=== PATIENT | male | born 1970 | race Hispanic/Latino ===

== ENCOUNTER 2017-10-03 17:48 | Emergency (ER) | payer OTHER ==
[2017-10-03 18:02] VITALS: BP 150/91; PULSE 98; RESP 22; TEMP 98.1; O2SAT 98
--- NOTE | 2017-10-03 18:31 | ED PDOC ---
HPI: Wound Care - HPI Time Seen by Provider: 10/03/17 17:57 Chief Complaint (Nursing): Abnormal Skin Integrity Chief Complaint (Provider): right leg laceration History Per: Patient Exam Limitations: no limitations Onset/Duration Of Symptoms: Hrs (x 1) Current Symptoms Are (Timing): Still Present Location Of Injury: Right: Leg (laceration) Additional Complaint(s): 47 year old male presents to ED with laceration to the right leg sustained when mirror fell on top of his leg 1 hour prior to arrival. Patient is not sure of last tetanus shot. Patient is complaining of pain to affected area. No loss of sensation. PMD: none Past Medical History Reviewed: Historical Data, Nursing Documentation, Vital Signs Vital Signs: Last Vital Signs Temp 98.1 F 10/03/17 18:00 Pulse 98 H 10/03/17 18:00 Resp 22 10/03/17 18:00 BP 150/91 H 10/03/17 18:00 Pulse Ox 98 10/03/17 18:00 - Medical History PMH: Anxiety - Surgical History Surgical History: No Surg Hx - Family History Family History: States: No Known Family Hx - Living Arrangements Living Arrangements: With Friends/Others - Social History Current smoker - smoking cessation education provided: Yes (Some days) Alcohol: Social Drugs: Denies - Immunization History Hx Tetanus Toxoid Vaccination: No (not sure of last tetanus) - Allergies Allergies/Adverse Reactions: Allergies Allergy/AdvReac Type Severity Reaction Status Date / Time No Known Allergies Allergy Verified 09/24/14 05:24 Review of Systems ROS Statement: Except As Marked, All Systems Reviewed And Found Negative Musculoskeletal: Positive for: Other (laceration to right leg) Physical Exam - Reviewed Nursing Documentation Reviewed: Yes Vital Signs Reviewed: Yes - Physical Exam Appears: Positive for: Well, Non-toxic, No Acute Distress Skin: Negative for: Rash Eye Exam: Positive for: Normal appearance Extremity: Positive for: Other (7 cm linear vertical laceration to medial mid jameson of the right leg with no active bleeding, wound is superficial, full rom right knee and ankle, normal sensation surrounding wound, normal distal sensation) Neurologic/Psych: Positive for: Alert, Oriented. Negative for: Motor/Sensory Deficits - ECG O2 Sat by Pulse Oximetry: 98 (RA) Pulse Ox Interpretation: Normal Procedure: Wound Repair - Time Performed Time Performed: 19:15 - Time Out Time Out: Side verified, Site verified, Patient ID confirmed, Sterile procedures obs. - Procedure Procedure: Wound Repair: right leg laceration - Consent Obtained Consent obtained: Verbal - Performed by Performed by: Mid-level Provider - Indications Indication(s):: Laceration - Location Location:: Right, Leg (medial jameson) Shape:: Linear Dimensions Length cm: 7 Dimensions width cm: 3 mm - Anesthetic Technique Anesthetic Technique: Local Local/Regional Anesthetic:: Lidocaine 2% - Debris Debris:: None - Irrigated Irrigated with ml of normal saline: 30 - Complexity Complexity:: Simple (one layer) - Wound repair method Sutures:: Technique (4-0 nylon running suture) - Muscle repiar layer closed with Muscle repair layer closed with:: Wound well approximated, Abx ointment applied , Dressing applied, Tetanus ordered - Complications Complications: none - Patient tolerated procedure Patient Tolerated Procedure:: Well Medical Decision Making Medical Decision Making: Impression: 47 year old with right leg laceration Plan: - Laceration repair - Tetanus booster See procedure note. Patient was given wound care instructions. Scribe Attestation: Documented by Frantz Cedillo, acting as a scribe for Sheryl Ames PA-C Provider Scribe Attestation: All medical record entries made by the Scribe were at my direction and personally dictated by me. I have reviewed the chart and agree that the record accurately reflects my personal performance of the history, physical exam, medical decision making, and the department course for this patient. I have also personally directed, reviewed, and agree with the discharge instructions and disposition. Disposition - Clinical Impression Clinical Impression: Leg laceration, Requires a booster tetanus - Patient ED Disposition Is Patient to be Admitted: No Counseled Patient/Family Regarding: Diagnosis, Need For Followup - Disposition Referrals: [facility] [Outside] Disposition: Routine/Home Disposition Time: 19:11 Condition: STABLE Additional Instructions: Take [id number] Tylenol or Advil for pain as needed. Keep wound clean and dry. Wash wound daily with soap and water. Wound check 2-3 days, suture removal 10-14 days. Instructions: Laceration Repair With Stitches (DC), Diphtheria and Tetanus Toxoids, and Acellular Pertussis Vaccine Forms: [employer] (Kinyarwanda)
[2017-10-03] MEDS ORDERED: Lidocaine 2% Inj (20ml) ONE (18:47)
[2017-10-03] MEDS ORDERED: Tdap Vaccine 0.5 ml Vial (10-64 yrs) IM ONE (19:17)
== END 2017-10-03 19:39 | disposition home or self-care (01) ==
LOC: H.ER 17:48
DX: S81.811A Laceration without foreign body, right lower leg, initial encounter (principal); W25.XXXA Contact with sharp glass, initial encounter; Y92.89 Other specified places as the place of occurrence of the external cause; F41.9 Anxiety disorder, unspecified